=== PATIENT | female | born 1970 | race Caucasian/White ===

== ENCOUNTER → 2023-07-16 08:21 | Outpatient (REF) | payer BC, SELFPAY | LOC: RAD 08:21 | PROVIDERS: ATTENDING PHYSICIAN Internal Medicine Gastroenterology; FAMILY PHYSICIAN Family Medicine | DX: R09.89 Other specified symptoms and signs involving the circulatory and respiratory systems (principal) | CPT/HCPCS: 74230; 92611 ==

== ENCOUNTER → 2025-03-22 07:57 | Outpatient (REF) | payer SELFPAY | LOC: HWRAD 07:57 | PROVIDERS: ATTENDING PHYSICIAN Family Medicine | DX: E78.2 Mixed hyperlipidemia (principal) | CPT/HCPCS: 75571 ==